=== PATIENT | female | born 2000 | race Caucasian/White ===

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

== ENCOUNTER 2020-02-06 14:54 | Emergency (ER) | payer OTHER ==
[~2020-02-06] VITALS: Ht 175.2 cm; Wt 95.3 kg
[2020-02-06] MEDS ORDERED: TESSALON PERLE100 MG PO (16:02)
== END 2020-02-06 16:26 | disposition home or self-care (01) ==
LOC: ED 14:54
DX: U07.1 COVID-19 (principal)